=== PATIENT | female | born 1975 | race Caucasian/White ===

== ENCOUNTER 2021-10-03 10:56 | Emergency (ER) | payer MEDICAID ==
[~2021-10-03] VITALS: Ht 170.2 cm; Wt 92.1 kg
[~2021-10-03 10:56] MED LIST: DOCU-299 PO; FERR325E14 PO; HYDR-4004 PO; LISI-487 PO; ONDA-188 SL; SCOP0.333 TP
[2021-10-03 11:15] VITALS: BP 188/101
--- NOTE | 2021-10-03 11:35 | NUR ---
45YO FEMALE PT C/O [facility]ARP 11/08 HEADACHE XYESTERDAY. PT STATES SUDDEN HEADACHE ALONG W/ DIZZINESS AND EPISODES OF CONFUSION. DENIES LOC. . PT STATES GOING TO STORE AND FEELING "DISORIENTATED" EARLIER IN THE MORNING. UPON ARRIVAL, PT NAUSOUS AND VOMITTED X1.NO BLOOD NOTED. REPORTS VOMIT X1 PRIOR TO ARRIVAL. DENIES CHEST PAIN, DIARRHEA, OR SOB. PT AAOX4, RESPIRATIONS EVEN AND UNLABPORED. SKIN WARM TO TOUCH. BED AT LOWEST POSITION , BED RAILS UP X2. HX: DIABETES, HTN NKA
--- NOTE | 2021-10-03 11:54 | NUR ---
JIM LAZARO AT BEDSIDE FOR EVALUATION
[2021-10-03] MEDS ORDERED: KETOROLAC 30 MG/ML VIAL IM ONE (12:00)
[2021-10-03] MEDS ORDERED: ONDANSETRON 4 MG ODT PO ONE (12:05)
[2021-10-03] MEDS ORDERED: NACL 0.9% 1,000 ML IV ONE (12:05)
[2021-10-03] MEDS ORDERED: KETOROLAC 15 MG/ML VIAL IVP ONE (12:05)
[2021-10-03] MEDS ORDERED: ONDANSETRON 4 MG/2 ML VIAL IVP ONE (12:05)
--- NOTE | 2021-10-03 12:17 | NUR ---
PT TAKEN TO CT VIA WHEELCHAIR
--- NOTE | 2021-10-03 12:28 | NUR ---
PT BROUGHT BACK FROM CT VIA WHEELCHAIR
[2021-10-03 12:45] LABS: BASOPHILS % (AUTO) 0.6 % (0.0-2.0); EOSINOPHILS # (AUTO) 0.1 K/uL (0-0.4); EOSINOPHILS % (AUTO) 1.4 % (0.0-4.0); HEMATOCRIT 30.3 % (36-48); HEMOGLOBIN 9.2 g/dL (12.0-16.0); LYMPHOCYTES # (AUTO) 1.4 K/uL (2.5-16.5); LYMPHOCYTES % (AUTO) 24.4 % (20.5-51.1); MEAN CORPUSCULAR HEMOGLOBIN 20 pg (27-31); MEAN CORPUSCULAR HGB CONC 30 g/dL (33-37); MEAN CORPUSCULAR VOLUME 65.1 fL (80-94); MONOCYTES # (AUTO) 0.3 K/uL (0.8-1.0); MONOCYTES % (AUTO) 4.8 % (1.7-9.3); NEUTROPHILS # (AUTO) 3.9 K/uL (1.8-7.7); NEUTROPHILS % (AUTO) 68.8 % (42.2-75.2); PLATELET COUNT (AUTO) 466 K/uL (140-450); RED BLOOD CELL COUNT(AUTO) 4.65 MIL/uL (4.20-5.40); RED CELL DISTRIBUTION WIDTH 19.4 % (11.6-13.7); WHITE BLOOD COUNT (AUTO) 5.7 K/uL (4.8-10.8)
[2021-10-03 13:13] LABS: ALBUMIN 3.6 g/dL (3.4-5.0); ANION GAP 11.3 (8-16); CARBON DIOXIDE 26.6 mmol/L (21-32); CREATININE 0.6 mg/dL (0.6-1.3); POTASSIUM 3.9 mmol/L (3.5-5.1); TOTAL BILIRUBIN 0.2 mg/dL (0.0-1.0)
[2021-10-03] MEDS ORDERED: ONDA-188 SL (13:40)
[2021-10-03 13:55] VITALS: BP 131/67
--- NOTE | 2021-10-03 13:55 | NUR ---
Patient discharged with v/s stable. Written and verbal after care instructions FOR VOMITING AND INDOMETHACIN-RESPONSIVE HEADACHE given and explained. Patient alert, oriented and verbalized understanding of instructions. Ambulatory with steady gait. All questions addressed prior to discharge. ID band removed. Patient advised to follow up with PMD. Rx of ZOFRAN given. Opportunity to ask questions provided and answered.
--- NOTE | 2021-10-03 13:56 | NUR ---
Chart checked and completed. The patient's care was reviewed and supervised by Emma Baker RN.
== END 2021-10-03 13:55 | disposition home or self-care (01) ==
LOC: MED 10:56
DX: R51.9 Headache, unspecified (principal); R11.2 Nausea with vomiting, unspecified; I10 Essential (primary) hypertension
CPT/HCPCS: 36415; 70450; 80053; 81025; 82948; 85025; 96361; 96374; 96375; 99284; J1885; J2405; J7030; Q0162

== ENCOUNTER 2021-10-03 18:48 | Inpatient (IN) | payer MEDICAID ==
[~2021-10-03] VITALS: Ht 170.2 cm; Wt 92.5 kg
[2021-10-03 18:52] VITALS: BP 181/89
--- NOTE | 2021-10-03 20:07 | NUR ---
RECEIVED IN BED 4 , c/o nausea, headache, blurry vision that started this morning. pt was seen earlier today for these s/s, pt states she was instructed to come back if she feels worse, states he does feel worse and is now c/o chest pain. pmh: htn, dm2 nka med: reba
[2021-10-03] MEDS ORDERED: hydrALAZINE 20 MG/ML VIAL IVP ONE (20:15)
[2021-10-03] MEDS ORDERED: ENALAPRILAT 2.5 MG/2 ML VIAL IVP ONE (20:15)
--- NOTE | 2021-10-03 20:28 | NUR ---
LABS DRAWN. PCXR AT BEDSIDE
[2021-10-03 20:32] LABS: BASOPHILS % (AUTO) 0.5 % (0.0-2.0); EOSINOPHILS % (AUTO) 0.4 % (0.0-4.0); HEMATOCRIT 29.8 % (36-48); LYMPHOCYTES # (AUTO) 1.2 K/uL (2.5-16.5); LYMPHOCYTES % (AUTO) 17.2 % (20.5-51.1); MEAN CORPUSCULAR HEMOGLOBIN 20 pg (27-31); MEAN CORPUSCULAR HGB CONC 30 g/dL (33-37); MEAN CORPUSCULAR VOLUME 64.6 fL (80-94); MONOCYTES # (AUTO) 0.3 K/uL (0.8-1.0); MONOCYTES % (AUTO) 4.4 % (1.7-9.3); NEUTROPHILS # (AUTO) 5.2 K/uL (1.8-7.7); NEUTROPHILS % (AUTO) 77.5 % (42.2-75.2); PLATELET COUNT (AUTO) 489 K/uL (140-450); RED BLOOD CELL COUNT(AUTO) 4.62 MIL/uL (4.20-5.40); RED CELL DISTRIBUTION WIDTH 19.6 % (11.6-13.7); WHITE BLOOD COUNT (AUTO) 6.8 K/uL (4.8-10.8)
[2021-10-03 20:47] LABS: ALBUMIN 3.4 g/dL (3.4-5.0); ANION GAP 10.8 (8-16); CARBON DIOXIDE 26.2 mmol/L (21-32); CREATININE 0.7 mg/dL (0.6-1.3); TOTAL BILIRUBIN 0.2 mg/dL (0.0-1.0)
[2021-10-03] MEDS ORDERED: ONDANSETRON 4 MG/2 ML VIAL IVP ONE (21:00)
[2021-10-03] MEDS ORDERED: NITROGLYCERIN 2% 1 GM PKT TP ONE (21:35)
[2021-10-03] MEDS ORDERED: ASPIRIN 325 MG TAB PO ONE (21:35)
[2021-10-03] MEDS ORDERED: ENOXAPARIN 100 MG/ML SYR SUBQ ONE (21:35)
--- NOTE | 2021-10-03 21:35 | NUR ---
KASANDRA SWAB OBTAINED AND SENT TO LAB
--- NOTE | 2021-10-03 23:05 | NUR ---
SPOKE WITH PTS . UPDATE GIVEN
--- NOTE | 2021-10-03 23:30 | NUR ---
to 104a via gurney. attached to cm, accompanied by rn and ert
[2021-10-03 23:44] VITALS: BP 147/81
--- NOTE | 2021-10-03 23:45 | NUR ---
RECEIVED PATIENT FROM ED, TRANSFER TO BED FROM [facility]. PATIENT STEADY ON HER GAIT WITH STANDBY ASSIST. ORIENTED TO ROOM. CALL LIGHT PLACED WITHIN REACH. INITIATED TELEMETRY MONITORING. PATIENT ALERT AND ORIENTED WITH COMPLAINT OF DIZZINESS AND NAUSEA. ALL ADMISSION DOCUMENTATIONS DONE. VITAL SIGNS TAKEN AND RECORDED, STABLE. MRSA SCREEN DONE AND SENT TO LAB.
[2021-10-04] MEDS ORDERED: MAG SULF 2000 MG/WATER PREMIX 50 ML IV PRN
--- NOTE | 2021-10-04 03:30 | NUR ---
MD MADE AWARE OF PATIENTS COMPLAINTS. AWAITING ORDERS.
[2021-10-04 04:00] VITALS: BP 157/88
[2021-10-04] MEDS ORDERED: ONDANSETRON 4 MG/2 ML VIAL IVP PRN ×2 (05:55→07:15)
[2021-10-04] MEDS ORDERED: DEXTROSE 50% 50 ML SYR IVP PRN (06:15)
--- NOTE | 2021-10-04 06:30 | NUR ---
RECEIVED NEW ORDERS FROM DR. BUTCHER, ALL ORDERS CARRIED OUT. STAT EKG AND STAT LAB DRAWS DONE. ALL MEDS GIVEN ORDERED.
[2021-10-04] MEDS: BLOOD GLUCOSE MONITORING 1 DEV DEV FS SCH ×4 (06:38→20:57)
[2021-10-04] MEDS: MECLIZINE 25 MG TAB PO PRN ×2 (06:41→09:06)
[2021-10-04 06:42] LABS: BASOPHILS % (AUTO) 0.3 % (0.0-2.0); EOSINOPHILS % (AUTO) 0.3 % (0.0-4.0); HEMOGLOBIN 9.3 g/dL (12.0-16.0); LYMPHOCYTES # (AUTO) 1.7 K/uL (2.5-16.5); LYMPHOCYTES % (AUTO) 25.1 % (20.5-51.1); MEAN CORPUSCULAR HEMOGLOBIN 20 pg (27-31); MEAN CORPUSCULAR HGB CONC 31 g/dL (33-37); MEAN CORPUSCULAR VOLUME 64.2 fL (80-94); MONOCYTES # (AUTO) 0.3 K/uL (0.8-1.0); MONOCYTES % (AUTO) 4.8 % (1.7-9.3); NEUTROPHILS # (AUTO) 4.6 K/uL (1.8-7.7); NEUTROPHILS % (AUTO) 69.5 % (42.2-75.2); PLATELET COUNT (AUTO) 503 K/uL (140-450); RED BLOOD CELL COUNT(AUTO) 4.67 MIL/uL (4.20-5.40); RED CELL DISTRIBUTION WIDTH 19.8 % (11.6-13.7); WHITE BLOOD COUNT (AUTO) 6.7 K/uL (4.8-10.8)
[2021-10-04] MEDS: INSULIN LISPRO SLIDING SCALE 100 UNITS/ML VIAL SUBQ PRN ×4 (06:45→21:00)
[2021-10-04 06:49] LABS: ANION GAP 12.3 (8-16); CARBON DIOXIDE 24.6 mmol/L (21-32); CREATININE 0.6 mg/dL (0.6-1.3); POTASSIUM 3.9 mmol/L (3.5-5.1)
[2021-10-04] MEDS ORDERED: DOCUSATE SODIUM 100 MG GELCAP PO PRN (07:15)
[2021-10-04] MEDS ORDERED: ZOLPIDEM 10 MG TAB PO PRN (07:15)
[2021-10-04] MEDS ORDERED: MORPHINE SULFATE 2 MG/ML SYR IVP PRN (07:15)
[2021-10-04] MEDS ORDERED: POTASSIUM CHLORIDE 10 MEQ TABER PO PRN (07:15)
[2021-10-04] MEDS ORDERED: ACETAMINOPHEN 325 MG TAB PO PRN (07:15)
--- NOTE | 2021-10-04 07:15 | NUR ---
RECEIVED REPORT FROM GERIATRIC CARE MANAGER NURSE FOR CONTINUITY OF CARE. PT IN BED, SLEEPING. EASILY AROUSABLE BY VERBAL STIMULI. RESPIRATIONS EVEN AND UNLABORED ON RA. NO DISTRESS NOTED. A&O4, ABLE TO COMMUNICATE NEEDS. PT ON TELE MONITOR. SKIN IS INTACT, WARM AND DRY TO TOUCH. IV SITE AT LAC, 20G, SL. CALL LIGHT WITHIN REACH. SAFETY PRECAUTIONS IN PLACE. WILL CONTINUE TO MONITOR.
[2021-10-04 08:00] VITALS: BP 125/77
[2021-10-04] MEDS: METOPROLOL 25 MG TAB PO SCH ×2 (08:43→16:45)
[2021-10-04] MEDS: ECOTRIN 81 MG TABEC PO SCH (08:43)
[2021-10-04] MEDS: ATORVASTATIN 20 MG TAB PO SCH (08:44)
--- NOTE | 2021-10-04 09:10 | NUR ---
PATIENT HAS BEEN SCREENED AND CATEGORIZED MODERATE NUTRITION RISK. PATIENT WILL BE SEEN WITHIN 3-[address] DA[address] OF ADMISSION. [address]EL [address]
--- NOTE | 2021-10-04 09:12 | NUR ---
ADMINISTERED SCHEDULED MORNING MEDS. PT COMPLAINED OF DIZZINESS. PRN MED GIVEN. PT TEACHING ABOUT MEDS DONE. PT VERBALIZED UNDERSTANDING. DR FOURNIER CAME, CHECK AND SEE THE PT.
--- NOTE | 2021-10-04 11:35 | NUR ---
BLOOD GLUCOSE CHECK DONE. BS 333. SLIDING SCALE INSULIN ADMINISTERED.
[2021-10-04 12:00] VITALS: BP 139/79
--- NOTE | 2021-10-04 13:42 | NUR ---
DID ROUNDS. PT IN BED, RESTING. NO DISTRESS NOTED. FAMILY MEMBER AT BEDSIDE. SAFETY PRECAUTIONS IN PLACE. WILL CONTINUE TO MONITOR.
[2021-10-04 16:00] VITALS: BP 133/76
--- NOTE | 2021-10-04 16:51 | NUR ---
BLOOD GLUCOSE CHECK DONE. BS 296. SLIDING SCALE INSULIN GIVEN. ADMINISTERED SCHEDULED MED. PT TEACHING DONE. PT VERBALIZED UNDERSTANDING. PT STATED SHE HAD A GOOD NAP AND THAT SHE FELT BETTER. CALL LIGHT WITHIN REACH. SAFETY PRECAUTIONS IN PLACE. WILL CONTINUE TO MONITOR.
--- NOTE | 2021-10-04 19:10 | NUR ---
ENDORSED PT TO SERVICE DELIVERY MANAGEMENT CONSULTANT NURSE FOR CONTINUITY OF CARE. ALL NEEDS MET THROUGHOUT SHIFT. PT IS STABLE.
[2021-10-04 20:00] VITALS: BP 122/70
--- NOTE | 2021-10-04 20:00 | NUR ---
RECEIVED BEDSIDE REPORT FROM DAY RN FOR CONTINUITY OF CARE. PATIENT A/A/OX4, AMBULATORY. PATIENT NOT IN ANY DISTRESS AND DENIES CHEST PAIN, SOB , PALPITATIONS AND DIZZINESS. VSS, AFEBRILE, SATING 99% ON RA. SINUS RHYTHM ON PRINTED CIRCUIT LAYOUT TAPER, HR-[id number]. DISCUSSED POC WITH THE PT AND VERBALIZED UNDERSTANDING. CALL LIGHT WITHIN REACH. WILL CONTINUE POC AND MONITORING.
[2021-10-04] MEDS ORDERED: lisinopriL 20 MG TAB PO SCH (21:00)
--- NOTE | 2021-10-04 22:00 | NUR ---
ALL DUE MEDICATIONS GIVEN ORDERED. PATIENT TOLERATED IT WELL. NO DRUG REACTIONS NOTED. NO COMPLAIN FROM THE PATIENT. WILL CONTINUE OBSERVATION
[2021-10-05] VITALS: BP 126/71
--- NOTE | 2021-10-05 | NUR ---
PATIENT VITAL SIGNS STABLE, AFEBRILE SATING 99% ON RA. NO COMPLAIN OF PAIN AT THIS TIME. SINUS RHYTHM ON MAXILLOFACIAL PATHOLOGY, HR-[id number]. CALL LIGHT WITHIN REACH. WILL CONTINUE MONITORING.
--- NOTE | 2021-10-05 02:00 | NUR ---
MADE ROUNDS, PATIENT ASLEEP AT THIS TIME. VISIBLE CHEST RISE AND FALL NOTED. PATIENT NOT IN ANY DISTRESS. WILL CONTINUE OBSERVATION.
[2021-10-05 04:00] VITALS: BP 111/69
--- NOTE | 2021-10-05 04:00 | NUR ---
PATIENT VITAL SIGNS STABLE, AFEBRILE SATING 99% ON RA. NO COMPLAIN OF PAIN AT THIS TIME. SINUS RHYTHM ON WASTEWATER TREATMENT PLANT SUPERVISOR, HR-62. CALL LIGHT WITHIN REACH. WILL CONTINUE MONITORING.
--- NOTE | 2021-10-05 06:32 | NUR ---
NO ACUTE EVENT THROUGHOUT THE NIGHT. PATIENT STABLE AND NOT IN ANY DISTRESS. NO COMPLAIN AT THIS TIME. ALL NEEDS ATTENDED. CALL LIGHT WITHIN REACH. WILL ENDORSE THE PT TO THE ONCOMING RN FOR CONTINUITY OF CARE.
[2021-10-05] MEDS: BLOOD GLUCOSE MONITORING 1 DEV DEV FS SCH ×2 (06:34→11:47)
[2021-10-05] MEDS: INSULIN LISPRO SLIDING SCALE 100 UNITS/ML VIAL SUBQ PRN ×2 (06:36→11:47)
--- NOTE | 2021-10-05 07:23 | NUR ---
ENDORSED PATIENT TO THE ONCOMING NURSE FOR CONTINUITY OF CARE. PATIENT STABLE. SIGNING OFF.
--- NOTE | 2021-10-05 07:30 | NUR ---
RECEIVED PATIENT REPORT FROM OPERATOR ENGINEER NURSE FOR CONTINUITY OF CARE. AOX4, ABLE TO VERBALIZE NEEDS. ON ROOM AIR, NO DISTRESS NOTED. NO C/O PAIN. IV ON LAC 20 GAUGE, SALINE LOCKED. SKIN IS WARM, DRY, AND INTACT. DENIES PAIN AT THE MOMENT. PLAN OF CARE DISCUSSED. SAFETY PRECAUTIONS IN PLACE. CALL LIGHT WITHIN REACH. WILL CONTINUE TO MONITOR
[2021-10-05 07:31] LABS: ANION GAP 9.8 (8-16); CARBON DIOXIDE 28.1 mmol/L (21-32); CREATININE 0.6 mg/dL (0.6-1.3); POTASSIUM 3.9 mmol/L (3.5-5.1)
[2021-10-05 07:41] LABS: BASOPHILS % (AUTO) 0.7 % (0.0-2.0); EOSINOPHILS # (AUTO) 0.1 K/uL (0-0.4); EOSINOPHILS % (AUTO) 1.6 % (0.0-4.0); LYMPHOCYTES % (AUTO) 44.3 % (20.5-51.1); MEAN CORPUSCULAR HEMOGLOBIN 20 pg (27-31); MEAN CORPUSCULAR HGB CONC 31 g/dL (33-37); MEAN CORPUSCULAR VOLUME 64.7 fL (80-94); MONOCYTES # (AUTO) 0.3 K/uL (0.8-1.0); NEUTROPHILS # (AUTO) 2.1 K/uL (1.8-7.7); NEUTROPHILS % (AUTO) 46.4 % (42.2-75.2); PLATELET COUNT (AUTO) 492 K/uL (140-450); RED BLOOD CELL COUNT(AUTO) 4.49 MIL/uL (4.20-5.40); RED CELL DISTRIBUTION WIDTH 19.3 % (11.6-13.7); WHITE BLOOD COUNT (AUTO) 4.5 K/uL (4.8-10.8)
[2021-10-05 08:00] VITALS: BP 127/73
--- NOTE | 2021-10-05 08:40 | NUR ---
due meds given, tolerated well
[2021-10-05] MEDS: METOPROLOL 25 MG TAB PO SCH (08:51)
[2021-10-05] MEDS: ECOTRIN 81 MG TABEC PO SCH (08:51)
[2021-10-05] MEDS: ATORVASTATIN 20 MG TAB PO SCH (08:51)
--- NOTE | 2021-10-05 09:10 | NUR ---
FOLLOWED UP WITH DR BERNARD REGARDING CONSULT, HE WILL BE HERE TO SEE PT AROUND NOON
[2021-10-05] MEDS ORDERED: INSULIN LANTUS 100 UNITS/ML 10 ML VIAL SUBQ SCH (09:55)
--- NOTE | 2021-10-05 11:50 | NUR ---
BLOOD SUGAR 313, COVERAGE GIVEN
[2021-10-05 12:00] VITALS: BP 131/75
[2021-10-05] MEDS ORDERED: LISI-487 PO (13:05)
[2021-10-05] MEDS ORDERED: lisinopriL 20 MG TAB PO SCH (21:00)
[2021-10-06] MEDS ORDERED: hydroCHLOROthiazide 25 MG TAB PO SCH (09:00)
== END 2021-10-05 13:50 | disposition home or self-care (01) | DRG 199 ==
LOC: MED 18:48 → MTU 21:20
PROVIDERS: ADMIT Student in an Organized Health Care Education/Training Program; ATTEND Student in an Organized Health Care Education/Training Program
DX: I16.0 Hypertensive urgency (principal); D50.9 Iron deficiency anemia, unspecified; E11.65 Type 2 diabetes mellitus with hyperglycemia; E66.9 Obesity, unspecified; E78.5 Hyperlipidemia, unspecified; Z20.822 Contact with and (suspected) exposure to COVID-19; Z68.32 Body mass index [BMI] 32.0-32.9, adult
CPT/HCPCS: 36415; 71045; 80048; 80053; 82948; 83036; 83735; 83880; 84484; 85025; 85379; 87081; 93005; 96374; 96375; 99291; J0360; J1644; J1650; J1815; J2405; J3490; J8597; Q0092

== ENCOUNTER 2023-04-20 13:09 | Emergency (ER) | payer MEDICAID, OTHER ==
[~2023-04-20] VITALS: Ht 167.6 cm; Wt 86.2 kg
[2023-04-20 13:22] VITALS: BP 166/86; PULSE 78; RESP 16; TEMP 97.7; O2SAT 98
[2023-04-20] MEDS: PROCHLORPERAZINE 10 MG/2 ML VIAL IM ONE (14:03)
[2023-04-20] MEDS: KETOROLAC 30 MG/ML VIAL IM ONE (14:04)
[2023-04-20] MEDS ORDERED: METO-486 PO (14:32)
[2023-04-20] MEDS ORDERED: IBUP-2213 PO (14:32)
[2023-04-20 15:00] VITALS: BP 134/65; PULSE 70; RESP 16; TEMP 98.3; O2SAT 96
== END 2023-04-20 14:55 | disposition home or self-care (01) ==
LOC: MED 13:09
DX: G43.909 Migraine, unspecified, not intractable, without status migrainosus (principal); R42 Dizziness and giddiness; E11.9 Type 2 diabetes mellitus without complications; I10 Essential (primary) hypertension; Z79.899 Other long term (current) drug therapy; Z88.5 Allergy status to narcotic agent
CPT/HCPCS: 96372; 99284; J0780; J1885